=== PATIENT | female | born 1985 | race African-American/Black ===

== ENCOUNTER 2017-03-07 13:35 | Emergency (ER) | payer OTHER ==
[~2017-03-07] VITALS: Ht 167.6 cm; Wt 90.7 kg
[2017-03-07 13:38] VITALS: BP 117/68
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
[2017-03-07] MEDS ORDERED: SOMA250 MG PO (14:31)
[2017-03-07] MEDS ORDERED: ROBAXIN500 MG PO (14:31)
[2017-03-07] MEDS ORDERED: IBUPROFEN400 MG ORAL (14:31)
[2017-03-07 14:42] VITALS: BP 102/68
== END 2017-03-07 14:42 | disposition home or self-care (01) ==
LOC: EMR 14:05
DX: M54.6 Pain in thoracic spine (principal); M62.838 Other muscle spasm; V43.52XA Car driver injured in collision with other type car in traffic accident, initial encounter; Y92.410 Unspecified street and highway as the place of occurrence of the external cause
CPT/HCPCS: 99283